=== PATIENT | female | born 1975 | race Caucasian/White ===

== ENCOUNTER 2020-03-12 08:52 | Emergency (ER) | payer MEDICAID ==
[~2020-03-12] VITALS: Ht 165.1 cm; Wt 87.3 kg
[2020-03-12 08:59] VITALS: BP 126/85
[2020-03-12] MEDS ORDERED: morphine 4 MG/ML inj SYRINge IV ONE (11:15)
[2020-03-12] MEDS ORDERED: normal saline 1000ML IV soln IVB ONE (11:15)
[2020-03-12] MEDS ORDERED: ketorolac tromethamine 15mg/ml inj. IV ONE (11:15)
[2020-03-12] MEDS ORDERED: diazepam inj 5 MG/ML inj. IV ONE (11:15)
[2020-03-12] MEDS ORDERED: HYDR-3973 PO (11:46)
[2020-03-12] MEDS ORDERED: DIAZ5TAB22 PO (11:46)
== END 2020-03-12 13:07 | disposition home or self-care (01) ==
LOC: ER 08:53
DX: M54.31 Sciatica, right side (principal); M62.830 Muscle spasm of back; Z79.899 Other long term (current) drug therapy
CPT/HCPCS: 96361; 96374; 96375; 99284; J1885; J2270; J3360; J7030

== ENCOUNTER 2021-06-08 19:19 | Emergency (ER) | payer MEDICAID ==
[~2021-06-08] VITALS: Ht 167.6 cm; Wt 86.4 kg
[2021-06-08] MEDS ORDERED: ondansetron/PF 4mg/2ml inj IV ONE (20:45)
[2021-06-08] MEDS ORDERED: pantoprazole 40 MG vial IV SCH (20:45)
[2021-06-08] MEDS ORDERED: normal saline 1000ML IV soln IVB ONE (20:45)
[2021-06-08] MEDS ORDERED: pantoprazole 40MG/NS 100ML BAG 100 ML IV ONE (20:50)
[2021-06-08] MEDS ORDERED: ibuprofen tablet 400 MG TABLET PO ONE (21:20)
[2021-06-08] MEDS ORDERED: HYDROcodone/acetaminophen 5mg/325mg tablet PO ONE (21:20)
[2021-06-08 22:11] VITALS: BP 121/72
== END 2021-06-08 22:31 | disposition home or self-care (01) ==
LOC: ER 19:20
DX: F07.81 Postconcussional syndrome (principal); R42 Dizziness and giddiness; R51.9 Headache, unspecified; R11.2 Nausea with vomiting, unspecified; Z72.89 Other problems related to lifestyle
CPT/HCPCS: 70450; 96374; 96375; 99284; C9113; J2405; J7030